=== PATIENT | male | born 1950 | race Caucasian/White ===

== ENCOUNTER 2021-03-12 20:02 | Inpatient (IN) | payer OTHER ==
[~2021-03-12] VITALS: Ht 182.9 cm; Wt 83.9 kg
[2021-03-12 20:20] LABS: Calcium, Ionized (POC) 1.09 mmol/L (1.10-1.46); Chloride (POC) 108 mmol/L (98-108); Creatinine (POC) 1.7 mg/dL (0.8-1.3); Glucose (ISTAT POC) 139 mg/dL (70-99); Hemoglobin (POC) 12.6 g/dL (13.5-17.5); Potassium (POC) 4.1 mmol/L (3.5-5.5); Sodium (POC) 139 mmol/L (135-148); Total CO2 (POC) 21 mmol/L (21-32)
[2021-03-12 20:25] LABS: BASOPHILS ABSOLUTE AUTO 0.03 K/mm3 (0.00-0.23); BASOPHILS PERCENT AUTO 0 % (0-2); EOSINOPHILS ABSOLUTE AUTO 0.08 K/mm3 (0.00-0.68); EOSINOPHILS PERCENT AUTO 1 % (0-6); Hematocrit 37.7 % (37.0-53.0); Hemoglobin 12.8 g/dL (13.5-17.5); IMMATURE GRAN ABSOLUTE AUTO 0.13 K/mm3 (0.00-0.10); IMMATURE GRAN PERCENT AUTO 1 % (0-1); LYMPHOCYTES ABSOLUTE AUTO 3.27 K/mm3 (0.84-5.20); LYMPHOCYTES PERCENT AUTO 24 % (21-46); MONOCYTES ABSOLUTE AUTO 0.64 K/mm3 (0.16-1.47); MONOCYTES PERCENT AUTO 5 % (4-13); Mean Corpuscular HGB 31.9 pg (26.0-34.0); Mean Corpuscular Volume 94 fL (80-100); Mean Platelet Volume 10.5 fL (9.1-12.4); NEUTROPHILS PERCENT AUTO 70 % (41-73); Platelet Count 198 K/mm3 (150-400); RDW Standard Deviation 44.8 fL (35.1-46.3); Red Blood Cell Count 4.01 M/mm3 (4.30-5.90); White Blood Cell Count 13.75 K/mm3 (4.00-11.30)
[2021-03-12 20:39] LABS: International Normalized Ratio 0.95; Prothrombin Time Results 10.3 Sec (9.7-11.5)
[2021-03-12 20:41] LABS: Albumin, Blood 3.2 g/dL (3.4-5.0); Bilirubin, Total 0.6 mg/dL (0.1-1.0); Bun/Creatinine Ratio 17.5 (12.0-20.0); Calcium, Blood 7.9 mg/dL (8.5-10.1); Creatinine, Blood 1.6 mg/dL (0.60-1.20); Globulin, Blood 3.1 g/dL (2.2-4.0); Potassium, Blood 4.2 mmol/L (3.5-5.5); Total Protein, Blood 6.3 g/dL (6.4-8.2)
[2021-03-12] MEDS ORDERED: ATEN25 PO (21:06)
[2021-03-12] MEDS ORDERED: TACR1 PO ×2 (21:07)
[2021-03-12] MEDS ORDERED: REVATIO20 MG PO (21:08)
[2021-03-12 22:40] LABS: Source, Urine Voided
[2021-03-12 22:41] LABS: Bilirubin, Urine Neg (Neg); Blood, Urine 3+ (Neg); Glucose Qualitative, Urine Neg (Neg); Ketones, Urine Neg (Neg); Leukocyte Esterase, Urine Neg (Neg); Nitrite, Urine Neg (Neg); Protein, Urine Neg (Neg); Urobilinogen, Urine NORM (Normal)
[2021-03-12 22:48] LABS: Appearance, Urine Clear (Clear); Color, Urine Yellow (P-Yellow); White Blood Cells, Urine 0-2 /hpf (0-5)
[2021-03-12 22:49] LABS: Bacteria Few /hpf; Mucus Light (0-Heavy); Squamous Epithelial Cells Not Seen /hpf (Few)
[2021-03-13 02:21] LABS: U Amphetamine Screen Not Detected; U Barbituate Screen Not Detected; U Benzodiazapine Screen Not Detected; U Buprenorphine Screen Not Detected; U Cannabinoids Screen Not Detected; U Cocaine Screen Not Detected; U Methadone Screen Not Detected; U Methamphetamine Screen Not Detected; U Opiates Screen DETECTED; U Oxycodone Screen Not Detected; U Phencyclidine Screen Not Detected; U Propoxyphene Screen Not Detected
[2021-03-13 05:10] LABS: Bun/Creatinine Ratio 19.2 (12.0-20.0); Calcium, Blood 7.5 mg/dL (8.5-10.1); Creatinine, Blood 1.46 mg/dL (0.60-1.20); Potassium, Blood 5.5 mmol/L (3.5-5.5)
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
--- NOTE | 2021-03-13 20:03 | NUR ---
SUMMARY: NO ACUTE CHANGE TODAY, A/O, VSS, NEURO INTACT. PT PAINFUL AND DIFFICULT TO MOVE. UNABLE TO PUT BRACE ON PT, EVEN AFTER BEING MEDICATED FOR PAIN. DR. SEARS MADE AWARE, PLAN TO TRY AGAIN TOMORROW TO PLACE BRACE PER ORDER. PT UNABLE TO WORK WITH THERAPY TODAY. DILAUDID DRILL BIT SHARPENER STARTED TONIGHT, AND APPEARS TO BE MANAGING PAIN WELL, NO APNEA EPISODES NOTED TODAY. PT CURRENTLY ON RA AND SP02 96% WHILE PT IS SLEEPING. REPORT GIVEN TO CONSUELO FRANCES.
[2021-03-14 04:20] LABS: BASOPHILS ABSOLUTE AUTO 0.01 K/mm3 (0.00-0.23); BASOPHILS PERCENT AUTO 0 % (0-2); EOSINOPHILS ABSOLUTE AUTO 0.03 K/mm3 (0.00-0.68); EOSINOPHILS PERCENT AUTO 1 % (0-6); Hematocrit 29.9 % (37.0-53.0); Hemoglobin 9.8 g/dL (13.5-17.5); IMMATURE GRAN ABSOLUTE AUTO 0.02 K/mm3 (0.00-0.10); IMMATURE GRAN PERCENT AUTO 0 % (0-1); LYMPHOCYTES ABSOLUTE AUTO 0.51 K/mm3 (0.84-5.20); LYMPHOCYTES PERCENT AUTO 9 % (21-46); MONOCYTES ABSOLUTE AUTO 0.37 K/mm3 (0.16-1.47); MONOCYTES PERCENT AUTO 6 % (4-13); Mean Corpuscular HGB 31.7 pg (26.0-34.0); Mean Corpuscular HGB Conc 32.8 g/dL (31.5-36.5); Mean Corpuscular Volume 97 fL (80-100); Mean Platelet Volume 10.9 fL (9.1-12.4); NEUTROPHILS ABSOLUTE AUTO 4.89 K/mm3 (1.96-9.15); NEUTROPHILS PERCENT AUTO 84 % (41-73); Platelet Count 116 K/mm3 (150-400); RDW Coefficient Variation 13.5 % (11.7-14.2); RDW Standard Deviation 48.1 fL (35.1-46.3); Red Blood Cell Count 3.09 M/mm3 (4.30-5.90); White Blood Cell Count 5.83 K/mm3 (4.00-11.30)
[2021-03-14 05:00] LABS: Albumin, Blood 2.6 g/dL (3.4-5.0); Albumin/Globulin Ratio 0.9 (0.8-1.8); Bilirubin, Total 1.3 mg/dL (0.1-1.0); Bun/Creatinine Ratio 21.9 (12.0-20.0); Calcium, Blood 7.2 mg/dL (8.5-10.1); Creatinine, Blood 1.37 mg/dL (0.60-1.20); Globulin, Blood 2.9 g/dL (2.2-4.0); Potassium, Blood 4.4 mmol/L (3.5-5.5); Total Protein, Blood 5.5 g/dL (6.4-8.2)
--- NOTE | 2021-03-14 06:27 | NUR ---
SHIFT SUMMARY NO ACUTE CHANGES OVERNIGHT. PT REPORTS PAIN ALL OVER. AOX4. VSS. NO NEURO CHANGES. PT DENIES N/T. PAIN MANAGED WITH DILAUDID INDUSTRIAL X RAY OPERATOR. NO APNEIC EPISODES AT NIGHT BUT PT SNORES. PT SLEPT GOOD T/O SHIFT. VOIDING WELL WITHOUT ANY DIFFICULTY BUT HAS TEA COLOR URINE. ENC TO DRINK LIQUIDS. TOLERATING PO, DENIES N/V. PT ALSO DENIES CHEST PAIN AND SOB. PLAN TO WORK WITH THERAPY WITH TORSO BRACE TODAY. PT STILL NEEDS TO GET MEASURED FOR THE TORSO BRACE, MAY NEED TO MEDICATE PT FOR PAIN PRIOR TO THIS. CALL LIGHT WITHIN REACH. WILL PROVIDE REPORT TO ONCOMING NURSE.
--- NOTE | 2021-03-14 07:50 | NUR ---
pt laying in bed stated with the laundry agent its 5/10 slept well
--- NOTE | 2021-03-14 09:45 | NUR ---
dr cotter by to see pt
--- NOTE | 2021-03-14 11:20 | NUR ---
po oxy given awaiting errol romero at 1200 to measure pt for tlso brace
--- NOTE | 2021-03-14 11:54 | NUR ---
OINT APPLIED TO ABRASIONS PT CLEANED HIS FACE
--- NOTE | 2021-03-14 14:25 | NUR ---
oob to chair dr duque by to see pt
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
[2021-03-15 04:43] LABS: Bun/Creatinine Ratio 23.1 (12.0-20.0); Calcium, Blood 7.9 mg/dL (8.5-10.1); Creatinine, Blood 1.47 mg/dL (0.60-1.20); Potassium, Blood 4.3 mmol/L (3.5-5.5)
--- NOTE | 2021-03-15 07:56 | NUR ---
SHIFT SUMMARY: VELMA IS A&OX4. VSS, NO ACUTE EVENTS OVERNIGHT. HE IS USING THE URINAL WITHOUT DIFFICULTY, ONE PERSON ASSIST TO THE BEDSIDE COMMODE, AND TOLERATING PO INTAKE WELL. HE REPORTS ADEQUATE PAIN MANAGEMENT WITH THE OXYCODONE AND DILAUDID. IV X 2 PATENT. HE WEARS THE BACK BRACE WHEN HE IS OUT OF BED. HE IS LYING IN BED WITH THE CALL LIGHT IN REACH. REPORT GIVEN TO DAY SHIFT RN.
--- NOTE | 2021-03-15 17:37 | NUR ---
SHIFT SUMMARY PT HAS BEEN AA0X4, UP WITH THERAPY TODAY, KEEPING BACK BRACE ON. PAIN MANAGED PER EMAR, SINGLE NEEDLE TUFTING MACHINE OPERATOR DC'D TODAY. DENIES SOB OR CP. SCATTERED ABRASIONS ON UPPER EXTREMETIES. PT REPORTS FEELING GOOD TODAY WITH MOVEMENT, REPORTS NEEDING TO HAVE BM STILL AT THIS TIME.
--- NOTE | 2021-03-16 04:11 | NUR ---
SHIFT SUMMARY: VELMA IS A&OX4. VSS, NO ACUTE EVENTS OVERNIGHT. HE REPORTS MODERATE PAIN CONTROL WITH THE 10 MG OF OXYCODONE. HE IS A ONE PERSON ASSIST TO THE BEDSIDE COMMODE, BRACE IN PLACE WHEN NOT LYING DOWN IN BED, TOLERATING PO INTAKE WELL, USING THE URINAL WITHOUT DIFFICULTY. HE IS LYING IN BED WITH THE CALL LIGHT IN REACH. WILL REPORT TO DAY SHIFT RN.
--- NOTE | 2021-03-16 19:17 | NUR ---
ASSUMED CARE. AOX3, STUBORN. SCABS SCATTERED ACROSS BODY, NO OPEN AREAS. DISCUSSED IN DETAIL RISK OF GETTING UP WITHOUT BACK BRACE, HE VERBALIZED UNDERSTANDING. LUNG SOUNDS ARE CLEAR. PAIN MEDICATION GIVEN. VS WNL, AFEBRILE. ASSISTED WITH URINAL USE. CALL LIGHT IS IN REACH.
[2021-03-17 05:01] LABS: Bun/Creatinine Ratio 22.8 (12.0-20.0); Calcium, Blood 8.1 mg/dL (8.5-10.1); Creatinine, Blood 1.49 mg/dL (0.60-1.20); Potassium, Blood 4.4 mmol/L (3.5-5.5)
--- NOTE | 2021-03-17 06:18 | NUR ---
SHIFT SUMMARY: AOX3, ABLE TO MOVE WITH SOME DISCOMFORT AND PAIN. STILL NEEDS TO BE REMINDED TO WEAR HIS BACK BRACE. STATES "I DON'T WANT TO PUT IT ON TO JUST GO A FEW FEET" EDUCATION GIVEN ON RISK FACTORS OF NOT FOLLOWING INSTRUCTIONS. PAIN HIGH T/O THE NIGHT, NEEDING EVERY 4 HOURS OF PAIN MEDICATION. HAD TO GIVE DILUDID 1MG ONCE AFTER GETTING UP TO USE THE BATHROOM. VS WNL, AFEBRILE. HOPES TO GO HOME WITH HOME HEALTH TODAY. CALL LIGHT AND BED ALARM REMAIN IN PLACE.
[2021-03-17] MEDS ORDERED: Senna-Extra17.2 MG PO (12:06)
[2021-03-17] MEDS ORDERED: OXYCONTIN20 M1 PO (12:08)
[2021-03-17] MEDS ORDERED: OXAYDO5 M1 PO (12:09)
--- NOTE | 2021-03-17 18:23 | NUR ---
DISCHARGE SUMMARY PT DISCHARGE TO HOME AT APPROXIMATELY 1810. NO ACUTE CHANGES NOTED TO PT THIS SHIFT. PT VERBALIZED UNDERSTANDING OF DISCHARGE ORDERS. NO COMPLAINTS OR ANY ISSUES NOTED TO PT PRIOR TO DC. PT MEDICATED FOR BACK PAIN THIS SHIFT PER EMAR. TLSO BRACE IN PLACE WHEN PATIENT IS STANDING OR SITTING. DISCHARGE PAPERWORK GIVEN TO PT PRIOR TO DISCHARGE. IV LINE DISCONTINUED PRIOR TO DC.
== END 2021-03-17 18:10 | disposition home or self-care (01) | DRG 552 ==
LOC: ER 20:02 → SURS 20:03 → ERHOLD 20:03 → SURS 23:48 → MEDS 03-16 15:49
PROVIDERS: Emergency Medicine; Internal Medicine; ADMIT Surgery
DX: S32.048A Other fracture of fourth lumbar vertebra, initial encounter for closed fracture (principal); Z94.4 Liver transplant status; S36.892A Contusion of other intra-abdominal organs, initial encounter; R65.10 Systemic inflammatory response syndrome (SIRS) of non-infectious origin without acute organ dysfunction; R71.0 Precipitous drop in hematocrit; S01.111A Laceration without foreign body of right eyelid and periocular area, initial encounter; S40.811A Abrasion of right upper arm, initial encounter; S80.212A Abrasion, left knee, initial encounter; S80.211A Abrasion, right knee, initial encounter; S02.2XXA Fracture of nasal bones, initial encounter for closed fracture; I12.9 Hypertensive chronic kidney disease with stage 1 through stage 4 chronic kidney disease, or unspecified chronic kidney disease; N18.30 Chronic kidney disease, stage 3 unspecified; S60.511A Abrasion of right hand, initial encounter; Z96.641 Presence of right artificial hip joint; Z79.899 Other long term (current) drug therapy; Z90.49 Acquired absence of other specified parts of digestive tract; V29.9XXA Motorcycle rider (driver) (passenger) injured in unspecified traffic accident, initial encounter
CPT/HCPCS: 12011; 36415; 70450; 71260; 72125; 74177; 80047; 80048; 80053; 80197; 81001; 82550; 82947; 83690; 85014; 85025; 85610; 96374; 96374-59; 96375-59; 96376; 96376-59; 97116; 97162; 97530; 97530-CQ; 99285-25; A9270; G0378; G0480; J1170; J2405; J7030; J7507; Q9967

== ENCOUNTER 2021-07-19 23:02 | Emergency (ER) | payer OTHER ==
[~2021-07-19] VITALS: Ht 175.3 cm; Wt 95.2 kg
[~2021-07-19 23:02] MED LIST: ATEN25 PO; OXAYDO5 M1 PO; OXYCONTIN20 M1 PO; REVATIO20 MG PO; Senna-Extra17.2 MG PO; TACR1 PO
[2021-07-19 23:34] LABS: Source, Urine Clean Catch
[2021-07-19 23:38] LABS: BASOPHILS ABSOLUTE AUTO 0.03 K/mm3 (0.00-0.23); BASOPHILS PERCENT AUTO 0 % (0-2); EOSINOPHILS ABSOLUTE AUTO 0.11 K/mm3 (0.00-0.68); EOSINOPHILS PERCENT AUTO 1 % (0-6); Hematocrit 37.4 % (37.0-53.0); Hemoglobin 12.6 g/dL (13.5-17.5); IMMATURE GRAN ABSOLUTE AUTO 0.04 K/mm3 (0.00-0.10); IMMATURE GRAN PERCENT AUTO 1 % (0-1); LYMPHOCYTES ABSOLUTE AUTO 2.96 K/mm3 (0.84-5.20); LYMPHOCYTES PERCENT AUTO 34 % (21-46); MONOCYTES ABSOLUTE AUTO 0.57 K/mm3 (0.16-1.47); MONOCYTES PERCENT AUTO 7 % (4-13); Mean Corpuscular HGB 31.7 pg (26.0-34.0); Mean Corpuscular HGB Conc 33.7 g/dL (31.5-36.5); Mean Corpuscular Volume 94 fL (80-100); Mean Platelet Volume 9.9 fL (9.1-12.4); NEUTROPHILS ABSOLUTE AUTO 4.95 K/mm3 (1.96-9.15); NEUTROPHILS PERCENT AUTO 57 % (41-73); Platelet Count 242 K/mm3 (150-400); RDW Coefficient Variation 12.7 % (11.7-14.2); RDW Standard Deviation 43.8 fL (35.1-46.3); Red Blood Cell Count 3.98 M/mm3 (4.30-5.90); White Blood Cell Count 8.66 K/mm3 (4.00-11.30)
[2021-07-19 23:39] LABS: Bilirubin, Urine Neg (Neg); Blood, Urine Neg (Neg); Glucose Qualitative, Urine Neg (Neg); Ketones, Urine Neg (Neg); Leukocyte Esterase, Urine Neg (Neg); Nitrite, Urine Neg (Neg); Protein, Urine Neg (Neg); Urobilinogen, Urine NORM (Normal); pH, Urine 6.5 (5.0-8.0)
[2021-07-19 23:49] LABS: Appearance, Urine Clear (Clear); Color, Urine Pale Yellow (P-Yellow)
[2021-07-20] LABS: Albumin/Globulin Ratio 0.8 (0.8-1.8); Bilirubin, Total 0.3 mg/dL (0.1-1.0); Bun/Creatinine Ratio 10.6 (12.0-20.0); Calcium, Blood 8.6 mg/dL (8.5-10.1); Creatinine, Blood 1.32 mg/dL (0.60-1.20); Globulin, Blood 3.7 g/dL (2.2-4.0); Potassium, Blood 4.1 mmol/L (3.5-5.5); Total Protein, Blood 6.7 g/dL (6.4-8.2)
[2021-07-20 00:08] LABS: U Amphetamine Screen Not Detected; U Barbituate Screen Not Detected; U Benzodiazapine Screen Not Detected; U Buprenorphine Screen Not Detected; U Cannabinoids Screen Not Detected; U Cocaine Screen Not Detected; U Methadone Screen Not Detected; U Methamphetamine Screen Not Detected; U Opiates Screen Not Detected; U Oxycodone Screen Not Detected; U Phencyclidine Screen Not Detected; U Propoxyphene Screen Not Detected
== END 2021-07-20 02:43 | disposition home or self-care (01) ==
LOC: ER 23:02
PROVIDERS: Student in an Organized Health Care Education/Training Program
DX: F10.121 Alcohol abuse with intoxication delirium (principal); M54.2 Cervicalgia; I10 Essential (primary) hypertension; Z79.899 Other long term (current) drug therapy
CPT/HCPCS: 70450; 72125; 80053; 81003; 85025; G0480; J7042

== ENCOUNTER 2025-07-20 00:06 | Emergency (ER) | payer OTHER, MEDICARE ==
[~2025-07-20] VITALS: Ht 182.9 cm; Wt 90.7 kg
[2025-07-20 00:23] VITALS: BP 144/79
[2025-07-20 00:54] LABS: BASOPHILS ABSOLUTE AUTO 0.01 K/mm3 (0.00-0.23); BASOPHILS PERCENT AUTO 0 % (0-2); EOSINOPHILS ABSOLUTE AUTO 0.10 K/mm3 (0.00-0.68); EOSINOPHILS PERCENT AUTO 2 % (0-6); Hematocrit 37.0 % (37.0-53.0); Hemoglobin 12.2 g/dL (13.5-17.5); IMMATURE GRAN ABSOLUTE AUTO 0.01 K/mm3 (0.00-0.10); IMMATURE GRAN PERCENT AUTO 0 % (0-1); LYMPHOCYTES ABSOLUTE AUTO 1.10 K/mm3 (0.84-5.20); LYMPHOCYTES PERCENT AUTO 24 % (21-46); MONOCYTES ABSOLUTE AUTO 0.33 K/mm3 (0.16-1.47); MONOCYTES PERCENT AUTO 7 % (4-13); Mean Corpuscular HGB Conc 33.0 g/dL (31.5-36.5); Mean Corpuscular Volume 95 fL (80-100); NEUTROPHILS ABSOLUTE AUTO 2.95 K/mm3 (1.96-9.15); NEUTROPHILS PERCENT AUTO 66 % (41-73); NRBC ABSOLUTE 0.00 K/mm3 (0.00-0.02); NRBC Auto 0.0 /100 WBC (0.0-0.2); Platelet Count 159 K/mm3 (150-400); RDW Coefficient Variation 12.5 % (11.7-14.2); RDW Standard Deviation 43.6 fL (35.1-46.3)
[2025-07-20 01:15] LABS: Alanine Aminotransfer (ALT/SGP 289.0 U/L (12-78); Albumin, Blood 3.3 g/dL (3.4-5.0); Albumin/Globulin Ratio 0.9 (0.8-1.8); Anion Gap 10.0 mmol/L (3-11); Aspartate Aminotrans (AST/SGOT 189.0 U/L (12-37); Bilirubin, Total 0.9 mg/dL (0.1-1.0); Blood Urea Nitrogen 27.0 mg/dL (8-24); CO2, Blood 21.0 mmol/L (21-32); Calcium, Blood 8.3 mg/dL (8.5-10.1); Chloride, Blood 112.0 mmol/L (98-108); Creatinine, Blood 1.63 mg/dL (0.60-1.20); Ethanol (Alcohol), Blood, Med 22.0 mg/dL; Globulin, Blood 3.8 g/dL (2.2-4.0); Glucose, Blood 87.0 mg/dL (70-99); Potassium, Blood 4.3 mmol/L (3.5-5.5); Sodium, Blood 139.0 mmol/L (136-145); Total Protein, Blood 7.1 g/dL (6.4-8.2)
== END 2025-07-20 02:14 | disposition home or self-care (01) ==
LOC: ER 00:06
PROVIDERS: Emergency Medicine
DX: R55 Syncope and collapse (principal); S09.90XA Unspecified injury of head, initial encounter; W01.0XXA Fall on same level from slipping, tripping and stumbling without subsequent striking against object, initial encounter
CPT/HCPCS: 70450; 80053; 80320; 85025; 93005; 93010; 99285-25

== ENCOUNTER 2025-07-21 02:35 | Emergency (ER) | payer OTHER ==
[~2025-07-21] VITALS: Ht 182.9 cm; Wt 93.0 kg
[2025-07-21] MEDS ORDERED: NS 1,000 ML IV SCH (09:35)
[2025-07-21 10:05] LABS: Source, Urine Clean Catch
[2025-07-21 10:09] LABS: Bilirubin, Urine Neg (Neg); Color, Urine Yellow (P-Yellow); Glucose Qualitative, Urine Neg (Neg); Ketones, Urine Neg (Neg); Leukocyte Esterase, Urine Neg (Neg); Protein, Urine 1+ (Neg); Specific Gravity, Urine 1.025 (1.003-1.022); Urobilinogen, Urine NORM (Normal)
[2025-07-21 10:10] LABS: BASOPHILS ABSOLUTE AUTO 0.01 K/mm3 (0.00-0.23); BASOPHILS PERCENT AUTO 0 % (0-2); EOSINOPHILS ABSOLUTE AUTO 0.09 K/mm3 (0.00-0.68); EOSINOPHILS PERCENT AUTO 2 % (0-6); Hematocrit 38.7 % (37.0-53.0); Hemoglobin 12.7 g/dL (13.5-17.5); IMMATURE GRAN ABSOLUTE AUTO 0.01 K/mm3 (0.00-0.10); IMMATURE GRAN PERCENT AUTO 0 % (0-1); LYMPHOCYTES ABSOLUTE AUTO 1.13 K/mm3 (0.84-5.20); LYMPHOCYTES PERCENT AUTO 25 % (21-46); MONOCYTES ABSOLUTE AUTO 0.35 K/mm3 (0.16-1.47); MONOCYTES PERCENT AUTO 8 % (4-13); Mean Corpuscular HGB Conc 32.8 g/dL (31.5-36.5); Mean Corpuscular Volume 94 fL (80-100); NEUTROPHILS ABSOLUTE AUTO 2.96 K/mm3 (1.96-9.15); NEUTROPHILS PERCENT AUTO 65 % (41-73); NRBC ABSOLUTE 0.00 K/mm3 (0.00-0.02); NRBC Auto 0.0 /100 WBC (0.0-0.2); Platelet Count 151 K/mm3 (150-400); RDW Coefficient Variation 12.5 % (11.7-14.2); RDW Standard Deviation 43.4 fL (35.1-46.3)
[2025-07-21 10:30] LABS: Alanine Aminotransfer (ALT/SGP 294.0 U/L (12-78); Albumin, Blood 3.5 g/dL (3.4-5.0); Albumin/Globulin Ratio 0.9 (0.8-1.8); Anion Gap 7.0 mmol/L (3-11); Aspartate Aminotrans (AST/SGOT 190.0 U/L (12-37); Bilirubin, Total 0.8 mg/dL (0.1-1.0); Blood Urea Nitrogen 32.0 mg/dL (8-24); CO2, Blood 26.0 mmol/L (21-32); Calcium, Blood 8.7 mg/dL (8.5-10.1); Chloride, Blood 111.0 mmol/L (98-108); Creatinine, Blood 1.62 mg/dL (0.60-1.20); Globulin, Blood 3.7 g/dL (2.2-4.0); Glucose, Blood 109.0 mg/dL (70-99); Potassium, Blood 4.5 mmol/L (3.5-5.5); Sodium, Blood 139.0 mmol/L (136-145); Total Protein, Blood 7.2 g/dL (6.4-8.2)
[2025-07-21 11:30] VITALS: BP 128/75
== END 2025-07-21 12:21 | disposition home or self-care (01) ==
LOC: ER 02:35
PROVIDERS: Emergency Medicine
DX: S09.90XA Unspecified injury of head, initial encounter (principal); R55 Syncope and collapse; W01.0XXA Fall on same level from slipping, tripping and stumbling without subsequent striking against object, initial encounter; Z79.899 Other long term (current) drug therapy
CPT/HCPCS: 70450; 80053; 84484; 85025; 93005; 93010; 96360; 96361; 99284-25; J7030